=== PATIENT | female | born 1985 | race Caucasian/White ===

== ENCOUNTER 2017-07-28 15:10 | Emergency (ER) | payer MEDICAID, OTHER ==
[~2017-07-28] VITALS: Ht 165.1 cm; Wt 70.0 kg
[~2017-07-28 15:10] MED LIST: BACTDS PO
[2017-07-28 15:28] VITALS: Ht 165.1 cm; Wt 70.0 kg
[2017-07-28] MEDS ORDERED: ACETAMINOPHEN 325 MG TAB PO STA (16:56)
[2017-07-28 17:20] LABS: BASOPHIL # 0.1 10^3/ul (0.0-0.1); BASOPHILS % 0.4 % (0.0-2.0); EOSINOPHILS # 0.1 10^3/ul (0.0-0.5); EOSINOPHILS % 0.3 % (0.0-7.0); HEMATOCRIT 39.4 % (37.0-47.0); HEMOGLOBIN 13.4 g/dl (12.0-16.0); LYMPHOCYTES # 2.6 10^3/ul (0.8-2.9); LYMPHOCYTES % 13.9 % (15.0-51.0); MEAN CORPUSCULAR HEMOGLOBIN 28.7 pg (29.0-33.0); MEAN CORPUSCULAR VOLUME 84.4 fl (82.0-101.0); MONOCYTE # 1.3 10^3/ul (0.3-0.9); MONOCYTES % 6.8 % (0.0-11.0); NEUTROPHIL # 14.3 10^3/ul (1.6-7.5); NEUTROPHILS % 77.9 % (39.0-77.0); PLATELET COUNT 460 10^3/UL (140-415); RED BLOOD COUNT 4.67 10^6/ul (4.20-5.40); RED CELL DISTRIBUTION WIDTH 12.5 % (11.5-14.5); WHITE BLOOD COUNT 18.4 10^3/ul (4.8-10.8)
--- NOTE | 2017-07-28 17:21 | RADRPT ---
PROCEDURE: US Pelvis. CLINICAL INDICATION: Pelvic pain TECHNIQUE: Transabdominal and transvaginal pelvic ultrasound are performed. COMPARISON: None. FINDINGS: The uterus is normal in echogenicity and anteverted in orientation. No focal fibroids are identifie d. Within the endometrial canal, gestational sac with normal double decidual reaction is seen. pole is identified. The crown-rump length measures 0.42 cm corresponding to an estimated age of 10 weeks 2 days. Positive cardiac activity detected a rate of 148 beats per minute. There is no s ubchorionic hemorrhage. Left ovary is identified and is normal in appearance. Right ovary is not seen. There are no complex adnexal masses. Normal Doppler flow is noted in the left ovary. Left ovary measures 4.4 x 2.5 x 3.5 cm There is no free fluid in the pelvis IMPRESSION: 1. Single live insuring of 10 weeks 2 days.. 2. Positive cardiac activity detected. 3. No subchorionic hemorrhage. 4. Normal left ovary. 5. Right ovary not visualized. There are no complex adnexal masses RPTAT: .Austin Parra MD, MD Date Time Electronically viewed and signed by .Austin Parra MD, MD on 07/28/2017 17:20 .W/
[2017-07-28 17:23] LABS: ADD UMIC YES; UR ASCORBIC ACID NEGATIVE (NEGATIVE); UR BACTERIA FEW /HPF (NONE SEEN); UR BILIRUBIN (Dip) NEGATIVE (NEGATIVE); UR BLOOD (Dip) 1+ mg/dL (NEGATIVE); UR CLARITY CLEAR (CLEAR); UR COLOR YELLOW (YELLOW); UR GLUCOSE (Dip) NEGATIVE (NEGATIVE); UR KETONES (Dip) TRACE mg/dL (NEGATIVE); UR LEUKOCYTE ESTERASE (Dip) TRACE Leu/ul (NEGATIVE); UR NITRITE (Dip) NEGATIVE (NEGATIVE); UR RBC 2 /HPF (0-5); UR SPECIFIC GRAVITY (Dip) 1.011 (1.003-1.030); UR SQUAMOUS EPITHELIAL CELL FEW /HPF (FEW); UR TOTAL PROTEIN (Dip) NEGATIVE (NEGATIVE); UR UROBILINOGEN (Dip) NEGATIVE (NEGATIVE)
[2017-07-28] MEDS ORDERED: NITR-58 PO (17:42)
--- NOTE | 2017-07-28 18:37 | ERD ---
ER Documentation Chief Complaint Chief Complaint pt bib self with c/o pelvic pain approx 10 wks HPI Otherwise healthy 31-year-old female who is 10 weeks presents with a chief complaint of lower abdominal pain and nausea vomiting 3 days. Denies fever, chills, shortness of breath, chest pain, similar symptoms in the past. Previous uncomplicated. Has taken acetaminophen with minimal relief. No discharge or foul odor. Patient has no other complaints and describes no other associated manifestations. Nursing notes have been reviewed and are consistent with history given. ROS All systems reviewed and are negative except as per history of present illness. Medications Home Meds Active Scripts Nitrofurantoin Monohyd Macrocr* (Macrobid*) 100 Mg Capsr, 100 MG PO BID for 14 Days, CAP Prov:JÚNIOR BRICENO PA-C 07/28/17 Sulfamethoxazole-Trimethoprim* (Bactrim* DS) 800-160 Mg Tab, 1 TAB PO BID for 7 Days, TAB Prov:MAGDA DOUGHERTY PA-C 04/20/15 Allergies Allergies: Coded Allergies: No Known Allergy (Unverified , 07/28/17) PMhx/Soc Medical and Surgical Hx: pt denies Medical Hx, pt denies Surgical Hx Hx Alcohol Use: No Hx Substance Use: No Hx Tobacco Use: No Smoking Status: Never smoker Physical Exam Vitals Vital Signs Date Time Temp Pulse Resp B/P Pulse Ox O2 Delivery O2 Flow Rate FiO2 07/28/17 15:28 100.4 127 18 129/88 100 Physical Exam Const: Well-appearing no acute distress. Head: Atraumatic Eyes: Normal Conjunctiva ENT: Normal External Ears, Nose and Mouth. Neck: Full range of motion..~ No meningismus. Resp: Clear to auscultation bilaterally Cardio: Regular rate and rhythm, no murmurs Abd: Fundal height not appreciated. Mild suprapubic tenderness. No CVA tenderness. Soft, non tender, non distended. Normal bowel sounds Skin: No petechiae or rashes Back: No midline or flank tenderness Ext: No cyanosis, or edema Neur: Awake and alert Psych: Normal Mood and Affect Result Diagram: 07/28/17 7498 Results 24 hrs Laboratory Tests Test 07/28/17 16:50 07/28/17 16:59 Urine Color YELLOW Urine Clarity CLEAR Urine pH 6.0 Urine Specific [place] 1.011 Urine Ketones TRACEmg/dL Urine Nitrite NEGATIVEmg/dL Urine Bilirubin NEGATIVEmg/dL Urine Urobilinogen NEGATIVEmg/dL Urine Leukocyte Esterase TRACELeu/ul Urine Microscopic RBC 2/HPF Urine Microscopic WBC 1/HPF Urine Squamous Epithelial Cells FEW/HPF Urine Bacteria FEW/HPF Urine Hemoglobin 1+mg/dL Urine Glucose NEGATIVEmg/dL Urine Total Protein NEGATIVEmg/dl White Blood Count 18.410^3/ul Red Blood Count 4.6710^6/ul Hemoglobin 13.4g/dl Hematocrit 39.4% Mean Corpuscular Volume 84.4fl Mean Corpuscular Hemoglobin 28.7pg Mean Corpuscular Hemoglobin Concent 34.0g/dl Red Cell Distribution Width 12.5% Platelet Count 17745^3/UL Mean Platelet Volume 10.0fl Neutrophils % 77.9% Lymphocytes % 13.9% Monocytes % 6.8% Eosinophils % 0.3% Basophils % 0.4% Nucleated Red Blood Cells % 0.0/100WBC Neutrophils # 14.310^3/ul Lymphocytes # 2.610^3/ul Monocytes # 1.310^3/ul Eosinophils # 0.110^3/ul Basophils # 0.110^3/ul Nucleated Red Blood Cells # 0.010^3/ul Beta HCG, Quantitative 293193.0mIU/ml Current Medications Medications (Trade) Dose Ordered Sig/Devin Route PRN Reason Start Time Stop Time Status Last Admin Dose Admin Acetaminophen (Tylenol Tab) 650 mg ONCE STAT PO 07/28/17 16:56 07/28/17 16:57 DC 07/28/17 17:16 Procedures/MDM Otherwise healthy 31-year-old female who is 10 weeks presents with a chief complaint of lower abdominal pain. Physical exam shows suprapubic tenderness. No CVA tenderness. Urinalysis showed a positive leuks and white blood cells most consistent with urinary tract infection. CBC: WBC 18. Neutrophil 78. Platelets 460. Beta-hC,140. Ultrasound: 1. Single live insuring of 10 weeks 2 days.. 2. Positive cardiac activity detected. 3. No subchorionic hemorrhage. 4. Normal left ovary. 5. Right ovary not visualized. There are no complex adnexal masses Most likely diagnosis is cystitis versus urinary tract infection of unspecified location. No suspicion for pyelonephritis, demise, ectopic , ovarian torsion, other acute abdomen or serious bacterial infection. No CVA tenderness. No fever and tolerates p.o. I have spoke with the patient regarding their condition and future management. They have verbally responded that they understand their status and treatment plan. The patients vitals are stable, and their current condition is appropriate for discharge. The patient will be given discharge instructions with return precautions. Departure Diagnosis: Primary Impression: Pelvic pain complicating Trimester: first trimester Qualified Code: O26.891 - Pelvic pain affecting in first trimester, antepartum Additional Impression: Cystitis Condition: Stable Patient Instructions: Cystitis Referrals: ALICIA VICKERS (PCP) Additional Instructions: Follow up with your REFUND CLERK in 2 days. Be sure to take todays test results ( provided within this packet) with you to your appointment. If you do not have an REFUND CLERK, a handout of locations with contact information will be provided to you. Follow all the recommendations we have previously discussed and the following written recommendations: If symptoms change or worsen, return to the emergency department immediately. Do not put anything in your vagina. Do not have sex, douche, or use tampons; these actions may increase your risk for infection and miscarriage. Rest as directed. Do not exercise or engage in strenuous activities; such activities may cause labor or miscarriage. If you have any further questions, ask before you leave the hospital, or contact the medical provider managing your . JÚNIOR BRICENO PA-C Jul 28, 2017 18:37
[2017-07-28 19:14] VITALS: BP 133/80; PULSE 109; RESP 17; TEMP 98
== END 2017-07-28 19:14 | disposition home or self-care (01) ==
LOC: FTE 15:10
DX: O23.11 Infections of bladder in pregnancy, first trimester (principal); R10.2 Pelvic and perineal pain; Z3A.10 10 weeks gestation of pregnancy
CPT/HCPCS: 36415; 76801; 81001; 84702; 85025; 86900; 86901; Z7502; Z7610

== ENCOUNTER 2017-12-29 13:56 | Outpatient (CLI) | END 2017-12-29 16:30 | disposition home or self-care (01) ==

== ENCOUNTER 2017-12-31 10:38 | Outpatient (CLI) | END 2017-12-31 11:55 | disposition home or self-care (01) ==

== ENCOUNTER 2018-01-03 11:31 | Outpatient (CLI) | END 2018-01-03 13:30 | disposition home or self-care (01) ==

== ENCOUNTER 2018-01-06 09:21 | Outpatient (CLI) | END 2018-01-06 13:20 | disposition home or self-care (01) ==

== ENCOUNTER 2018-01-10 10:31 | Outpatient (CLI) | END 2018-01-10 12:21 | disposition home or self-care (01) ==

== ENCOUNTER 2018-01-13 10:25 | Outpatient (CLI) | END 2018-01-13 11:41 | disposition home or self-care (01) ==

== ENCOUNTER 2018-01-18 14:00 | Inpatient (IN) | END 2018-01-20 00:07 | disposition home or self-care (01) | DRG 781 ==

== ENCOUNTER 2018-01-31 11:13 | Inpatient (IN) | END 2018-02-03 15:45 | disposition home or self-care (01) | DRG 775 ==